=== PATIENT | male | born 1995 | race Caucasian/White ===

== ENCOUNTER 2022-11-23 02:10 | Emergency (ER) | payer OTHER, SELFPAY ==
[2022-11-23 02:17] VITALS: BP 152/101; PULSE 118; RESP 20; TEMP 37; O2SAT 96; BMI 34.9
--- NOTE | 2022-11-23 03:32 | ED.WOUNDLAC ---
HPI - Wound/Laceration General Chief Complaint: Wound/Laceration Stated Complaint: Finger lac Time Seen by Provider: 11/23/22 03:23 Source: patient Mode of arrival: ambulatory Limitations: no limitations History of Present Illness HPI narrative: Patient apparently got a superficial laceration on the tip of right index in from broken glass Related Data Allergies Allergy/AdvReac Type Severity Reaction Status Date / Time amoxicillin [AMOXICILLIN] Allergy Unknown HIVES Unverified 12/24/19 16:21 cashew nut Allergy Unknown RASH Unverified 12/24/19 16:21 Penicillins [PENICILLINS] Allergy Unknown HIVES Unverified 12/24/19 16:21 Review of Systems Review of Systems: Yes all other systems are reviewed and are negative PMFSH Social History Social History Advance Directives: No Advance Directives Information Provided: Yes Physical Exam Vital Signs: Vital Signs: Last Vital Signs Temp 98.6 F 11/23/22 02:17 Pulse 118 H 11/23/22 02:17 Resp 20 11/23/22 02:17 BP 152/101 H 11/23/22 02:17 Pulse Ox 96 11/23/22 02:17 O2 Del Method Room Air 11/23/22 02:17 BMI result Body Mass Index 34.9 Extrem: Hand/finger images: 1. 2.5 cm long superficial laceration tendons neurovascular intact Medications Administered Discontinued Medications Generic Name Dose Route Start Last Admin Trade Name Freq PRN Reason Stop Dose Admin Lidocaine HCl 2 ml 11/23/22 03:32 11/23/22 03:40 Lidocaine Hcl 1 % Mpf 2 Ml Vial INFILTRATI 11/23/22 03:33 2 ml ONCE ONE Administration Procedures Laceration Laceration 1: Description: linear Depth: simple, single layer Local Anesthetic: lidocaine 1% Amount of anesthesia used (mL): 2 Pre-repair: deep structures intact Skin layer closed with: nylon Size (cm): 5-0 Number of sutures: 5 Technique: simple, interrupted Discharge Plan Discharge Clinical Impression: Laceration Patient Disposition: Home, Self-Care Instructions: Finger Laceration (ED) Additional Instructions: Local care as advised Suture removal in 7-10 days
[2022-11-23] MEDS: Lidocaine HCl 1 % MPF 2 ML VIAL INFILTRATI (03:40)
[2022-11-23] MEDS: Diphth,Pertus(ACell),Tet Adult 0.5 ML SYRINGE IM (04:24)
== END 2022-11-23 04:30 | disposition home or self-care (01) ==
PROVIDERS: Emergency Provider Internal Medicine
DX: S61.210A Laceration without foreign body of right index finger without damage to nail, initial encounter (principal); W25.XXXA Contact with sharp glass, initial encounter; Y93.9 Activity, unspecified; Y92.019 Unspecified place in single-family (private) house as the place of occurrence of the external cause; Y99.9 Unspecified external cause status
CPT/HCPCS: 12001; 90471; 90715; 99282; 99284

== ENCOUNTER 2022-12-01 13:19 | Outpatient (AMB) | payer OTHER, SELFPAY ==
--- NOTE | 2022-12-01 13:47 | MHC.OFFWIV ---
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 Allergies amoxicillin [AMOXICILLIN] Allergy (Unknown, Unverified 12/01/22 13:52) HIVES cashew nut Allergy (Unknown, Unverified 12/01/22 13:52) RASH Penicillins [PENICILLINS] Allergy (Unknown, Unverified 12/01/22 13:52) HIVES Do you need a note to return to daycare/school/sports/work: No HPI HPI Comments History of Present Illness Details This is a 27-year-old male who presents to the office today for suture removal. Patient sustained a laceration to his right index finger on 11/23/2022. He had 5 sutures placed at that time. Patient presents today for removal of sutures. He is otherwise feeling well. Review of Systems Const All systems reviewed & are unremarkable except as noted in HPI and below Reports no additional complaints Eyes Reports no additional complaints ENT Reports no additional complaints Card Reports no additional complaints Resp Reports no additional complaints GI Reports no additional complaints Reports no additional complaints Musc Reports no additional complaints Skin/Breast Reports system reviewed and no additional complaints, except as documented Neuro Reports no additional complaints Psych Reports no additional complaints Endo Reports no additional complaints Selvin/Lymph Reports no additional complaints Aller/Immun Reports no additional complaints Physical Exam Vital Signs: BMI result Body Mass Index 35.7 Const General: cooperative, healthy appearing, no acute distress and well developed Orientation/consciousness: patient oriented x3 HEENT Head: Yes normal to inspection Ears: hearing grossly normal bilaterally General nose exam: Normal external nose present Face and sinus: Yes normal facial exam Mouth: Normal oral and palatal mucosa present Eyes General: appearance normal, both eyes and all related structures Pupils: Equal, round and reactive pupils present EOM: EOMs intact bilaterally Resp Effort & Inspection: normal respiratory effort and no respiratory distress Cardio Rate: regular rate GI Inspection: No distended Palpation (GI): Soft to palpation and nontender Auscultation: normal bowel sounds Skin Other: 2.5 cm laceration with [address] Laceration appears to be healing well. There is dried blood and scabbing. No surrounding erythema or drainage noted. General skin exam: no rashes or lesions noted Neuro General: patient oriented x3 Cranial nerves: Yes CN's II-XII intact bilaterally and Yes Equal, round and reactive pupils present Gait exam (Neuro): Normal gait present Motor exam (neuro): 5/5 motor strength present throughout Extrem General: Yes normal to inspection, Yes full ROM and Yes no clubbing, cyanosis or edema Psych Appearance: grossly normal Mental Status: mental status grossly normal Assessment & Plan Assessment & Plan (1) Encounter for removal of sutures: Code(s): Z48.02 - Encounter for removal of sutures Plan: This is a 27-year-old male who sustained a laceration to his right hand index finger and had 5 sutures placed 8 days ago. Sutures were removed today in the office. Patient tolerated procedure well without complications. Patient advised to keep the area clean and dry. Patient is otherwise safe for discharge home. Patient advised to follow-up here for any new or worsening symptoms. Coding Level of Care Code New Pt Level 3 (30313) Diagnoses Encounter for removal of sutures Z48.02
[2022-12-01 13:48] VITALS: BP 132/80; PULSE 81; TEMP 37; O2SAT 97; BMI 35.7
== END 2022-12-01 14:16 | disposition home or self-care (01) ==
PROVIDERS: Visit Provider Physician Assistant Medical
DX: Z48.02 Encounter for removal of sutures (principal)
CPT/HCPCS: 99051; 99203